=== PATIENT | female | born 1995 | race Caucasian/White ===

== ENCOUNTER → 2023-06-16 06:47 | Outpatient (CLI) | payer OTHER, SELFPAY ==
--- NOTE | 2023-06-16 06:49 | DI.US.S_ITS ---
PROCEDURE: US OB <= 14 WEEKS FETUS INDICATIONS: dating and viability OUTSIDE/PRIOR DATING DATA: Last menstrual period (LMP): 04/10/2023. LMP-based estimated date of delivery (JACQUELYN): 01/15/2024. First dating scan (date and location): 06/16/2023. Estimated date of delivery (JACQUELYN) from first dating scan: 01/12/2024. TECHNIQUE: Real-time scanning was performed of the fetus and maternal pelvic organs, with image documentation. Transvaginal exam not performed. COMPARISON: None. FINDINGS: Embryo: [place]-rump length measuring 3.1 cm, gestational age 10 weeks 0 days Heart rate: 153 bpm. A yolk sac is seen. Small perigestational hemorrhage measuring 3.1 cm. Maternal organs: Ovaries are within normal limits. Right corpus luteum measuring 3.3 cm. Small posterior uterine fibroid measuring 3.6 x 3.3 x 2.6 cm. IMPRESSION: 1. [place] living intrauterine at 10 weeks 0 days based on today's crown rump length. 2. Small perigestational hemorrhage. We strive to produce accurate, complete, and clear reports of imaging services. To assist us in improving patient care, this report was composed using standard report templates and voice recognition software. Therefore, it may contain abnormal punctuation, insertions and/or omissions. Occasional wrong-word or sound-alike substitutions may occur. Though we review the report and make efforts to correct it, we do recommend that the report be read carefully in proper context to recognize any text inaccuracies Dictated by: Eric Bales M.D. on 06/16/2023 at 11:36 Approved by: Eric Bales M.D. on 06/16/2023 at 11:41
== END ==
PROVIDERS: PCP Family Medicine; Referring Provider Family Medicine; Visit Provider Family Medicine
DX: O46.8X1 Other antepartum hemorrhage, first trimester (principal); Z3A.10 10 weeks gestation of pregnancy
CPT/HCPCS: 76801; 76817

== ENCOUNTER → 2023-07-05 07:18 | Outpatient (CLI) | payer OTHER, SELFPAY | PROVIDERS: PCP Family Medicine; Visit Provider Physician Assistant | DX: R30.0 Dysuria (principal); R10.9 Unspecified abdominal pain | CPT/HCPCS: 87086 ==

== ENCOUNTER 2023-07-05 07:36 | Emergency (ER) | payer OTHER, SELFPAY ==
[2023-07-05 07:54] VITALS: PULSE 75; O2SAT 99
[2023-07-05 08:00] VITALS: BP 136/85; PULSE 79; O2SAT 99
--- NOTE | 2023-07-05 08:01 | ED.BACK ---
HPI - Back Pain/Injury General Chief Complaint: Urogenital-Female Stated Complaint: kidney pain Time Seen by Provider: 07/05/23 07:55 History of Present Illness HPI Narrative: Patient is sent here from walk-in clinic for right flank pain for the past 5 days. No fever chills. No urinary complaints. No hematuria. Patient is . Twelve weeks . Has establish care locally with OBGYN. Explained to to date January 15, 2024. Patient states she is familiar with this flank pain. 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 She has had pyeloplasty as well as ureteral stents. She is from [place]. She moved here in March. Has not established urology care. Last procedure done was in 2018 in [place]. Patient denies any vaginal bleeding or discharge. She states she has not had any nausea or vomiting with her . Related Data Home Medications Medication Instructions Recorded Confirmed vitamin-ferrous sulfate tab PO 05/25/23 07/07/23 27 mg iron-folic acid 0.8 mg tablet Allergies Allergy/AdvReac Type Severity Reaction Status Date / Time oxycodone Allergy Severe Anaphylaxis Verified 07/07/23 11:40 Review of Systems Review of Systems Narrative: GENERAL: negative chills, fatigue, malaise, fever, sweats. 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 Arm fracture, right UPJ obstruction, congenital Surgical History [place] teeth extracted (~2020) History of pyeloplasty S/P skin biopsy Family History Mother Uterine cancer Grand multipara MTHFR gene mutation Sister Infertility History of recurrent miscarriages Sister History of recurrent miscarriages Pre-diabetes Congenital deafness Brother Mastocytosis Grandmother Diabetes mellitus Uncle Bone cancer Aunt Tonsillar cancer Social History marital status: number of children: 1 household members: spouse lives independently: Yes caregiver/support person: No housing: house pets and animals: Yes (2 cats, aware of toxo precautions) education level: college (bachelor's degree) occupational status: previously employed (worked in pet pharmacology) current occupational exposures/hazards: No special stephan needs: No travel history: recent (domestic only) seatbelt use: always helmet use: Yes water heater temp set < 120 deg: Yes working smoke detector in home: Yes fire extinguisher in home: Yes carbon monox detector in home: Yes firearms in home: No do you feel safe at home: Yes Smoking Status: Former smoker second hand exposure: No alcohol intake: former (occasionally when not ) substance use type: does not use during the past year weight has: remained stable well-balanced diet: daily or most days daily servings fruits/ve-4 caffeine: Yes (AM cup coffee) Type(s) of exercise: bicycling, weight lifting, other (skiing) and running frequency: daily Smoking Status: Former smoker Exam Narrative Exam Narrative: GENERAL: in no distress, not toxic not dyspneic HEAD: Normocephalic. EYES: Pupils equal round ENT: Mucous membranes moist. NECK: Trachea midline. CARDIOVASCULAR: Regular rate and rhythm RESPIRATORY: Clear to auscultation. Breath sounds equal bilaterally. No wheezes, rales, or rhonchi. GASTROINTESTINAL: Abdomen soft, non-tender, reproducible right lower CVA tenderness., abdomen is soft flat nontender. No peritoneal signs. Bowel sounds are present. EXTREMITIES: No gross deformities. BACK: Right CVA tenderness NEURO: AOx4. SKIN: Warm and dry PSYCH: Not anxious, is cooperative Initial Vital Signs Initial Vital Signs: Vital Signs Pulse Rate 75 07/05/23 07:54 Pulse Oximetry 99 07/05/23 07:54 Course Orders Ordered: Discontinued Medications Bacitracin (Bacitracin Oint 0.9 Gm Pckt) 1 applic TOP NOW ONE Stop: 07/05/23 08:36 Last Admin: 07/05/23 08:57 Dose: Not Given Documented By: JONATHAN Vital Signs Vital signs: Vital Signs - 8 hr 07/05/23 08:02 Temperature 98.4 F Pulse Rate 73 Respiratory Rate 18 Blood Pressure 130/72 Pulse Oximetry 100 Oxygen Delivery Method Room Air MDM - Back Pain/Injury Lab Data 07/05/23 08:04 07/05/23 08:04 Labs: Lab Results 07/05/23 07/05/23 Range/Units 07:54 08:04 WBC 7.2 (4.5-11.0) X10^3/uL RBC 4.03 (4.0-5.2) X10^6/uL Hgb 12.6 (12.0-16.0) g/dL Hct 36.4 (36-46) % MCV 90.2 (80-100) fL MCH 31.3 (26-34) PG MCHC 34.7 (30-36) % RDW 13.8 (11.6-14.8) % Plt Count 262 (150-400) X10^3/uL Neut % (Auto) 65.2 (50-75) % Lymph % (Auto) 26.3 (25-40) % [place] % (Auto) 6.6 (3-14) % Eos % (Auto) 1.5 L (2-4) % Baso % (Auto) 0.4 (0-2) % Neut # (Auto) 4700 (4138-9917) /uL Lymph # (Auto) 1900 (4317-2687) /uL [place] # (Auto) 500 (0-900) /uL Eos # (Auto) 100 (0-450) /uL Baso # (Auto) 0 (0-100) /uL Sodium 136 L (137-145) mmol/L Potassium 3.6 (3.4-5.1) mmol/L Chloride 108 H (98-107) mmol/L Carbon Dioxide 22 (22-32) mmol/L BUN 7 (7-17) mg/dL Creatinine 0.46 L (0.52-1.04) mg/dL Estimated GFR > 60 (>60) mL/min BUN/Creatinine Ratio 15.2 (6-22) Glucose 92 (70-100) mg/dL Calcium 8.9 (8.4-10.2) mg/dL Total Bilirubin 0.5 (0.2-1.3) mg/dL AST 23 (14-36) IU/L ALT 15 (<35) IU/L Alkaline Phosphatase 35 L (38-126) U/L Total Protein 6.7 (6.3-8.2) g/dL Albumin 4.1 (3.5-5.0) g/dL Globulin 2.6 (1.7-4.1) g/dL Albumin/Globulin Ratio 1.6 (1.0-2.8) Urine Color Yellow Urine Appearance Clear Urine pH 7.0 (4.5-8.0) Ur Specific [place] 1.015 (1.000-1.035) Urine Protein Negative (Negative) Urine Glucose (UA) Negative (Negative) g/dL Urine Ketones Negative (NEGATIVE) Urine Occult Blood Trace-intact (Negative) Urine Nitrate Negative (Negative) Urine Bilirubin Negative (NEGATIVE) Urine Urobilinogen 0.2 (0.2) E.U./dL Ur Leukocyte Esterase Negative (NEGATIVE) Urine RBC 1-5/hpf (0-5/HPF) Urine WBC None seen (0-5/HPF) Ur Squamous Epith Cells 1-5 /hpf (0-5/HPF) Urine Bacteria None seen (None) Ur Culture Indicated? Cult not indicated Vol Urine Centrifuged 10ml (spun) Point of Care Testing Test Results Positive Urine Dip Bedside Urine Glucose Negative Bedside Urine Bilirubin - Negative Bedside Urine Ketone - Negative Urine Specific [place] 1.015 Bedside Urine Occult Blood +/- Bedside Urine pH 6.5 Bedside Urine Protein - Negative Bedside Urine Urobilinogen - Negative Bedside Urine Nitrite - Negative Bedside Urine Leukocytes - Negative Esterase Imaging Data Renal ultrasound: Radiologist's Impression: [address] [address] Ultrasound Report Signed Patient: Neida Milton MR#: [id number] : 1995 Acct:[id number] Age/Sex: 28 / F Date of Service: 07/05/23 Loc: ED Accession Number: [id number] Procedure: US renal complete Ordering Provider: Daniel Anthony MD PROCEDURE: US RENAL COMPLETE INDICATIONS: Right flank pain/history of ureteral blockage TECHNIQUE: Real-time scanning was performed of the kidneys and bladder, with image documentation. COMPARISON: None. FINDINGS: Kidneys: Kidneys are normal in size. Right kidney measures 15.9 cm long; left kidney measures 11.8 cm long. Right renal cortical thickness is 1.9 cm; left renal cortical thickness is 1.8 cm. Renal cortical echotexture is normal. There is severe right hydronephrosis without hydroureter. No left hydronephrosis. No suspicious solid mass lesions. Bladder: Nondistended. Miscellaneous: No free pelvic fluid. Living late 1st trimester intrauterine with a heartbeat measuring 147 beats per minute. IMPRESSION: 1. There is a living late 1st trimester intrauterine . 2. There is severe right hydronephrosis without hydroureter. This may potentially be a chronic finding. Dictated by: Ezequiel Sofia M.D. on 07/05/2023 at 8:46 Approved by: Ezequiel Sofia M.D. on 07/05/2023 at 8:58 [facility] Narrative Medical decision making narrative: Patient is sent here from walk-in clinic for right flank pain for the past 5 days. No fever chills. No urinary complaints. No hematuria. Patient is . Twelve weeks . Has establish care locally with OBGYN. Explained to to date January 15, 2024. Patient states she is familiar with this flank pain. 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 She has had pyeloplasty as well as ureteral stents. She is from [place]. She moved here in March. Has not established urology care. Last procedure done was in 2019 in [place]. Patient denies any vaginal bleeding or discharge. She states she has not had any nausea or vomiting with her . After history and exam CBC CMP urinalysis renal ultrasound [facility] Medical records reviewed: No recent visit for this complaint. Differential considered: Includes but not limited to pyelonephritis hydronephrosis kidney stone UTI Lab Test results independently reviewed as above. Pertinent findings: Imaging studies independently reviewed: Ultrasound kidneys, severe right hydronephrosis likely chronic Consultations: 9:[address] Cooper, urology, who will see patient in the office for re-evaluation. No surgery or stenting indicated this time given normal renal function and ultrasound likely shows chronic hydronephrosis. No further imaging indicated this time as patient is . Treatments: None indicated. Patient does not want anything for discomfort. Re-evaluations: 9:22 a.m.. Reviewed results with patient. She states she had ultrasound of the kidney likely the last 1 was in 2019 in [place]. She has not surprised of the kidney swelling/hydronephrosis as this is likely chronic because when she was 9 years old they were able to palpate her kidney in the back. This is likely chronic. Renal functions are reassuring. She does not want anything for discomfort. I did talk to her and she agreed she may need higher level of care after meeting with Dr. Cooper and her OBGYN here, she may need to be referred to [facility] or [facility] or [facility] to coordinate OBGYN and urology services. Discussion: Appropriate for discharge home. Exam and laboratory studies are reassuring. Ultrasound kidney right side noted, severe hydronephrosis likely chronic due to patient's renal function is normal. I did review with patient results and she states her kidney on the right has always been swollen because when she was 9 years old and has swollen for all those years until she was diagnosed. Pain is controlled. She does not want any medications for pain. Return precautions reviewed. I did review with urology for follow up. Referral provided. Return precautions reviewed. She desires discharge home. No leukocytosis. No UTI. Likely not pyelonephritis. I did review with urology. No stenting indicated at this time. No antibiotics are indicated at this time. Diagnosis: Hydronephrosis Discharge Plan Departure Patient Disposition: Home Clinical Impression: Hydronephrosis Qualifiers: Hydronephrosis type: unspecified Qualified Code(s): N13.30 - Unspecified hydronephrosis Instructions: DI for Hydronephrosis-Adult Activity Restrictions/Additional Instructions: Please call Dr. Cooper office today for office appointment time for re-evaluation and continued care with Urology. Phone number has been provided. May take Tylenol for pain. Please inform your OBGYN provider that you will be seeing Dr. Cooper and need to coordinate care for any further future radiographs. Or procedures. At this time kidney function looks reassuring on blood work. However return if worse if any questions or concerns. Prescriptions: No Action vit-ferrous sulfat-FA 27 mg iron- 0.8 mg tablet PO Referrals: Estuardo Cooper MD [Physician] - Rosa Winslow MD [Primary Care Provider] - Stand Alone Forms: Patient Portal/API
[2023-07-05 08:02] VITALS: BP 130/72; PULSE 73; RESP 18; TEMP 36.9; O2SAT 100; BMI 23.3
[2023-07-05 08:06] LABS: Appearance Urine UA CLEAR; Bilirubin Urine UA NEGATIVE (NEGATIVE); Color Urine UA YELLOW; Glucose Urine UA NEGATIVE (Negative); Ketones Urine UA NEGATIVE (NEGATIVE); Leukocyte Esterase Urine UA NEGATIVE (NEGATIVE); Nitrite Urine UA NEGATIVE (Negative); Occult Blood Urine UA TRACE-INTACT (Negative); Protein Urine UA NEGATIVE (Negative); Specific Gravity Urine UA 1.015 (1.000-1.035); Urine Volume 10mL (spun); Urobilinogen Urine UA 0.2 E.U./dL (0.2)
[2023-07-05 08:11] LABS: RBC Urine 1-5/HPF (0-5/HPF)
[2023-07-05 08:11] LABS: Add Manual Diff / Slide Review NO; Basophils Absolute Auto 0 /uL (0-100); Basophils Percent Auto 0.4 % (0-2); Eosinophils Absolute Auto 100 /uL (0-450); Eosinophils Percent Auto 1.5 % (2-4); Hematocrit 36.4 % (36-46); Hemoglobin 12.6 g/dL (12.0-16.0); Lymphocytes Absolute Auto 1900 /uL (1100-4500); Lymphocytes Percent Auto 26.3 % (25-40); Mean Corpuscular HGB Conc 34.7 % (30-36); Mean Corpuscular Hemoglobin 31.3 PG (26-34); Mean Corpuscular Volume 90.2 fL (80-100); Monocytes Absolute Auto 500 /uL (0-900); Monocytes Percent Auto 6.6 % (3-14); Neutrophils Absolute Auto 4700 /uL (1500-7000); Neutrophils Percent Auto 65.2 % (50-75); Platelet Count 262 X10^3/uL (150-400); Red Blood Cell Count 4.03 X10^6/uL (4.0-5.2); Red Cell Distribution Width 13.8 % (11.6-14.8); White Blood Cell Count 7.2 X10^3/uL (4.5-11.0)
[2023-07-05 08:12] LABS: Bacteria Urine None Seen; Culture Indicated Urine Cult Not Indicated; Squamous Epithelial Cell Urine 1-5 /HPF (0-5/HPF); WBC Urine None Seen (0-5/HPF)
[2023-07-05 08:24] LABS: Alanine Aminotransferase 15 IU/L (<35); Albumin 4.1 g/dL (3.5-5.0); Albumin Globulin Ratio 1.6 (1.0-2.8); Alkaline Phosphatase 35 U/L (38-126); Aspartate Aminotransferase 23 IU/L (14-36); BUN Creatinine Ratio 15.2 (6-22); Bilirubin Total 0.5 mg/dL (0.2-1.3); Blood Urea Nitrogen 7 mg/dL (7-17); Calcium 8.9 mg/dL (8.4-10.2); Carbon Dioxide 22 mmol/L (22-32); Chloride 108 mmol/L (98-107); Estimated Glomerular Filt Rate > 60 mL/min (>60); Globulin 2.6 g/dL (1.7-4.1); Glucose 92 mg/dL (70-100); HEMOLYSIS < 15 (0-50); Potassium 3.6 mmol/L (3.4-5.1); Sodium 136 mmol/L (137-145); Total Protein 6.7 g/dL (6.3-8.2)
[2023-07-05 08:30] VITALS: BP 111/67; PULSE 68; O2SAT 99
[2023-07-05 09:00] VITALS: BP 105/69; PULSE 67; O2SAT 97
[2023-07-05 09:30] VITALS: BP 110/76; PULSE 72; O2SAT 98
== END 2023-07-05 09:42 | disposition home or self-care (01) ==
PROVIDERS: Emergency Provider Emergency Medicine; PCP Family Medicine
DX: O99.891 Other specified diseases and conditions complicating pregnancy (principal); N13.30 Unspecified hydronephrosis; R30.0 Dysuria; R10.9 Unspecified abdominal pain; Z3A.12 12 weeks gestation of pregnancy
CPT/HCPCS: 76770; 80053; 81001; 81003; 81025; 85025; 87086; 99282; 99283

== ENCOUNTER → 2023-07-22 09:08 | Outpatient (CLI) | payer OTHER, SELFPAY ==
[2023-07-22 10:08] LABS: Appearance Urine UA CLEAR; Bilirubin Urine UA NEGATIVE (NEGATIVE); Color Urine UA YELLOW; Glucose Urine UA NEGATIVE (Negative); Ketones Urine UA NEGATIVE (NEGATIVE); Leukocyte Esterase Urine UA NEGATIVE (NEGATIVE); Nitrite Urine UA NEGATIVE (Negative); Occult Blood Urine UA NEGATIVE (Negative); Protein Urine UA NEGATIVE (Negative); Specific Gravity Urine UA 1.015 (1.000-1.035); Urobilinogen Urine UA 0.2 E.U./dL (0.2)
[2023-07-22 10:09] LABS: Add Manual Diff / Slide Review NO; Basophils Absolute Auto 0 /uL (0-100); Basophils Percent Auto 0.3 % (0-2); Eosinophils Absolute Auto 100 /uL (0-450); Eosinophils Percent Auto 0.8 % (2-4); Hemoglobin 12.9 g/dL (12.0-16.0); Lymphocytes Absolute Auto 1600 /uL (1100-4500); Lymphocytes Percent Auto 20.5 % (25-40); Mean Corpuscular Hemoglobin 31.7 PG (26-34); Mean Corpuscular Volume 90.6 fL (80-100); Monocytes Absolute Auto 400 /uL (0-900); Monocytes Percent Auto 4.5 % (3-14); Neutrophils Absolute Auto 5800 /uL (1500-7000); Neutrophils Percent Auto 73.9 % (50-75); Platelet Count 280 X10^3/uL (150-400); Red Blood Cell Count 4.08 X10^6/uL (4.0-5.2); Red Cell Distribution Width 13.9 % (11.6-14.8); White Blood Cell Count 7.8 X10^3/uL (4.5-11.0)
[2023-07-22 10:12] LABS: pH Urine UA 6.5 (4.5-8.0)
[2023-07-22 10:44] LABS: Alanine Aminotransferase 22 IU/L (<35); Albumin Globulin Ratio 1.8 (1.0-2.8); Alkaline Phosphatase 37 U/L (38-126); Aspartate Aminotransferase 24 IU/L (14-36); Bilirubin Total 0.5 mg/dL (0.2-1.3); Blood Urea Nitrogen 6 mg/dL (7-17); Calcium 8.7 mg/dL (8.4-10.2); Carbon Dioxide 22 mmol/L (22-32); Chloride 107 mmol/L (98-107); Estimated Glomerular Filt Rate > 60 mL/min (>60); Globulin 2.2 g/dL (1.7-4.1); Glucose 88 mg/dL (70-100); HEMOLYSIS < 15 (0-50); Potassium 3.8 mmol/L (3.4-5.1); Sodium 137 mmol/L (137-145); Total Protein 6.2 g/dL (6.3-8.2)
[2023-07-22 10:44] LABS: Creatinine Urine Random 103.07 mg/dL; Protein (Total) Urine Random 16 mg/dL (0-12); Protein Creatinine Ratio Urine 0.15 GRAM/24H
[2023-07-22 11:14] LABS: Hepatitis B Surface Antigen NEGATIVE s/c (NEGATIVE); Rubella Antibody IgG 1.8 IU/mL (>15)
[2023-07-22 11:39] LABS: HIV 1 & 2 Ab/Ag 4th Gen Combo NEGATIVE (NEGATIVE); Hep C Virus Ab w/Reflex Quant NEGATIVE s/c (NEGATIVE)
[2023-07-22 12:16] LABS: Urine N gonorrhoeae NOT DETECTED
[2023-07-22 12:17] LABS: Urine Chlamydia NOT DETECTED
[2023-07-23 06:35] LABS: RPR Screen Non Reactive (Non Reactive)
[2023-07-23 08:10] LABS: Varicella IgG Antibody 246 index (Immune >165)
== END ==
PROVIDERS: PCP Family Medicine; Referring Provider Family Medicine; Visit Provider Family Medicine
DX: Z34.01 Encounter for supervision of normal first pregnancy, first trimester (principal); Q63.9 Congenital malformation of kidney, unspecified
CPT/HCPCS: 36415; 80053; 80055; 81003; 82570; 84156; 86787; 86803; 86850; 86900; 86901; 87086; 87389; 87491; 87591

== ENCOUNTER → 2023-08-17 09:43 | Outpatient (CLI) | payer OTHER, SELFPAY | PROVIDERS: PCP Family Medicine; Visit Provider Family Medicine | DX: Z34.00 Encounter for supervision of normal first pregnancy, unspecified trimester (principal); Q63.9 Congenital malformation of kidney, unspecified; Q52.129 Other and unspecified longitudinal vaginal septum | CPT/HCPCS: 87086 ==

== ENCOUNTER → 2023-09-07 11:39 | Outpatient (CLI) | payer OTHER, SELFPAY ==
[2023-09-07 12:49] LABS: Appearance Urine UA CLEAR; Bilirubin Urine UA NEGATIVE (NEGATIVE); Color Urine UA YELLOW; Glucose Urine UA NEGATIVE (Negative); Ketones Urine UA NEGATIVE (NEGATIVE); Leukocyte Esterase Urine UA TRACE (NEGATIVE); Nitrite Urine UA POSITIVE (Negative); Occult Blood Urine UA NEGATIVE (Negative); Protein Urine UA NEGATIVE (Negative); Urobilinogen Urine UA 0.2 E.U./dL (0.2)
[2023-09-07 13:01] LABS: Bacteria Urine Moderate (10-30); Culture Indicated Urine Specimen Cultured; RBC Urine None Seen (0-5/HPF); Squamous Epithelial Cell Urine 5-10 /HPF (0-5/HPF); Urine Volume 10mL (spun); WBC Urine 5-10/HPF (0-5/HPF)
== END ==
PROVIDERS: PCP Family Medicine; Visit Provider Family Medicine
DX: Z34.00 Encounter for supervision of normal first pregnancy, unspecified trimester (principal); Q63.9 Congenital malformation of kidney, unspecified
CPT/HCPCS: 81001; 87086

== ENCOUNTER → 2023-09-09 06:44 | Outpatient (CLI) | payer OTHER, SELFPAY ==
--- NOTE | 2023-09-09 06:45 | DI.US.S_ITS ---
PROCEDURE: US OB >= 14 WEEKS FETUS INDICATIONS: anatomy scan OUTSIDE/PRIOR DATING DATA: Last menstrual period (LMP): 04/10/2023. LMP-based estimated date of delivery (JACQUELYN): 01/15/2024. First dating scan (date and location): 06/16/2023. Estimated date of delivery (JACQUELYN) from first dating scan: 01/12/2024. The calculations are made using the clinical JACQUELYN of 01/15/2024. TECHNIQUE: Real-time scanning was performed of the fetus, with image documentation and biometric measurements. Endovaginal scanning: Not performed. COMPARISON: [facility], , OB <= 14 WEEKS FETUS, 06/16/2023, 6:57. FINDINGS: General: A single living intrauterine gestation is present. Presentation: Vertex. Placenta: Placental position is posterior, without previa. Amniotic fluid index: 15.4 cm, normal range is 5-24 cm. Single deepest vertical pocket is 4.1 cm. heart rate: Not obtained. Subjectively normal. Maternal cervical canal: 3.1 cm long. Normal lower limit is 2.5 cm. biometrics: Biparietal diameter: 5.4 cm, 22 weeks 3 days Head circumference: 20.4 cm, 22 weeks 3 days Abdominal circumference: 17.7 cm, 22 weeks 4 days Femur length: 4 cm, 22 weeks 5 days Clinically estimated gestational age: 21 weeks 5 days Composite gestational age from present scan: 22 weeks 4 days Estimated weight and percentile: 523 g, 88th percentile Anatomic survey: Neuro: Ventricles are non-dilated at less than 10 mm. Cisterna magna is normal at 3-11 mm. Cerebellum is normal in size and morphology. Nuchal skin fold: Normal at less than 6 mm between 14-21 weeks gestational age. Face: Nose and lips, facial profile are normal. Spine: No evidence for spina bifida. Heart: 4-chambered heart is present, with normal ventricular outflow tracts. Diaphragm: Diaphragm is intact. Stomach: Left-sided stomach is present. Kidneys: No hydronephrosis. Normal is less than 5 mm in 2nd trimester, less than 7 mm in 3rd trimester. Cord: 3-vessel cord has orthotopic insertion. Bladder: Normal in size. Extremities: All 4 extremities identified. IMPRESSION: 1. Tobar living intrauterine at 22 weeks 4 days based on today's ultrasound. Fetus is in the 88th percentile for weight. 2. Normal placenta and amniotic fluid. 3. Normal and complete anatomic survey. heart rate was not obtained. However, subjectively normal. We strive to produce accurate, complete, and clear reports of imaging services. To assist us in improving patient care, this report was composed using standard report templates and voice recognition software. Therefore, it may contain abnormal punctuation, insertions and/or omissions. Occasional wrong-word or sound-alike substitutions may occur. Though we review the report and make efforts to correct it, we do recommend that the report be read carefully in proper context to recognize any text inaccuracies. Dictated by: Eric Bales M.D. on 09/09/2023 at 14:39 Approved by: Eric Bales M.D. on 09/09/2023 at 14:46
== END ==
LOC: US 06:44
PROVIDERS: PCP Family Medicine; Referring Provider Family Medicine; Visit Provider Family Medicine
DX: Z34.82 Encounter for supervision of other normal pregnancy, second trimester (principal); Z3A.22 22 weeks gestation of pregnancy
CPT/HCPCS: 76811

== ENCOUNTER 2023-09-20 20:48 | Observation (INO) | payer OTHER, SELFPAY ==
--- NOTE | 2023-09-20 21:59 | PM.OBTRLD ---
Visit Information Visit Information Date of evaluation: 09/20/23 On-call OB Provider: Sydney Smith Comments/Additional reasons for admission: 28yo at 23+2wks presented to triage after a fall on her side while carrying a heavy piece of a computer out of her house. The computer piece fell on her upper abdomen. She denied feeling any abdominal pain or vaginal bleeding. Vital Signs Vital Signs: BP 105/56, P 69 PFSH Medical History (Updated 09/20/23 @ 22:04 by Sydney Smith DO) Hydronephrosis, right Mullerian duct anomaly Pneumonitis due to aspiration during anesthesia Arm fracture, right UPJ obstruction, congenital Surgical History History of ureter stent Hx of laparoscopy [place] teeth extracted (~2020) History of pyeloplasty S/P skin biopsy Family History Mother Uterine cancer Grand multipara MTHFR gene mutation Sister Infertility History of recurrent miscarriages Hearing impairment Sister History of recurrent miscarriages Pre-diabetes Congenital deafness Brother Mastocytosis Eczema Hearing impairment Grandmother Diabetes mellitus Uncle Bone cancer Aunt Tonsillar cancer Social History marital status: number of children: 1 household members: spouse lives independently: Yes caregiver/support person: No housing: house pets and animals: Yes (2 cats, aware of toxo precautions) education level: college occupational status: previously employed current occupational exposures/hazards: No special stephan needs: No travel history: recent seatbelt use: always helmet use: Yes water heater temp set < 120 deg: Yes working smoke detector in home: Yes fire extinguisher in home: Yes carbon monox detector in home: Yes firearms in home: No do you feel safe at home: Yes Smoking Status: Former smoker second hand exposure: No alcohol intake: current substance use type: does not use during the past year weight has: remained stable well-balanced diet: daily or most days daily servings fruits/ve-4 caffeine: Yes (AM cup coffee) Type(s) of exercise: bicycling, weight lifting, other and running frequency: daily Evaluation Evaluation Baseline heart rate: 135 Variability: Moderate (11-25) monitor accelerations: Present (10x10) Monitor Decelerations: Absent Category of Tracing: Appropriate for gestational age Diagnosis, Plan/Disposition Final Diagnosis (1) Fall (on) (from) other stairs and steps, initial encounter: Status: Acute Plan/Disposition Plan: Pt was observed in the center for 4hrs with no changes in symptoms and no concerns on monitoring. Discharged home with precautions. Follow-up in clinic as scheduled. OB Disposition: home
== END 2023-09-21 01:05 | disposition home or self-care (01) ==
LOC: LABOR 20:52
PROVIDERS: Admitting Provider Student in an Organized Health Care Education/Training Program; PCP Family Medicine; Referring Provider Student in an Organized Health Care Education/Training Program; Visit Provider Student in an Organized Health Care Education/Training Program
DX: O26.892 Other specified pregnancy related conditions, second trimester (principal); W10.9XXA Fall (on) (from) unspecified stairs and steps, initial encounter; Z3A.23 23 weeks gestation of pregnancy
CPT/HCPCS: 59050; G0378; G0379

== ENCOUNTER → 2023-10-05 10:11 | Outpatient (CLI) | payer OTHER, SELFPAY ==
[2023-10-05 12:26] LABS: Appearance Urine UA SL CLOUDY; Bilirubin Urine UA NEGATIVE (NEGATIVE); Color Urine UA YELLOW; Glucose Urine UA NEGATIVE (Negative); Ketones Urine UA NEGATIVE (NEGATIVE); Leukocyte Esterase Urine UA 2+ (NEGATIVE); Nitrite Urine UA POSITIVE (Negative); Occult Blood Urine UA NEGATIVE (Negative); Protein Urine UA TRACE (Negative); Specific Gravity Urine UA 1.015 (1.000-1.035); Urobilinogen Urine UA 0.2 E.U./dL (0.2)
[2023-10-05 12:30] LABS: pH Urine UA 6.5 (4.5-8.0)
[2023-10-05 12:39] LABS: RBC Urine None Seen (0-5/HPF); Urine Volume 10mL (spun)
[2023-10-05 12:40] LABS: Bacteria Urine Many (>30); Culture Indicated Urine Specimen Cultured; Squamous Epithelial Cell Urine 1-5 /HPF (0-5/HPF); WBC Urine 10-30/HPF (0-5/HPF)
== END ==
PROVIDERS: PCP Family Medicine; Visit Provider Family Medicine
DX: Q63.9 Congenital malformation of kidney, unspecified (principal)
CPT/HCPCS: 81001; 87086

== ENCOUNTER → 2023-10-12 09:30 | Outpatient (CLI) | payer OTHER, SELFPAY ==
[2023-10-12 11:13] LABS: GTT (PREG) 1 Hour PP 50gm Dose 122 mg/dL (76-139)
== END ==
PROVIDERS: PCP Family Medicine; Referring Provider Family Medicine; Visit Provider Family Medicine
DX: Z34.00 Encounter for supervision of normal first pregnancy, unspecified trimester (principal)
CPT/HCPCS: 36415; 82950

== ENCOUNTER → 2023-10-24 14:57 | Outpatient (CLI) | payer OTHER, SELFPAY ==
[2023-10-24 17:17] LABS: Appearance Urine UA CLEAR; Bilirubin Urine UA NEGATIVE (NEGATIVE); Color Urine UA YELLOW; Glucose Urine UA NEGATIVE (Negative); Ketones Urine UA NEGATIVE (NEGATIVE); Leukocyte Esterase Urine UA 3+ (NEGATIVE); Nitrite Urine UA POSITIVE (Negative); Occult Blood Urine UA NEGATIVE (Negative); Protein Urine UA NEGATIVE (Negative); Urobilinogen Urine UA 0.2 E.U./dL (0.2)
[2023-10-24 17:24] LABS: Bacteria Urine Few (2-10); Culture Indicated Urine Specimen Cultured; RBC Urine None Seen (0-5/HPF); Squamous Epithelial Cell Urine 1-5 /HPF (0-5/HPF); Urine Volume 10mL (spun); WBC Urine 5-10/HPF (0-5/HPF)
== END ==
PROVIDERS: PCP Family Medicine; Visit Provider Family Medicine
DX: R39.9 Unspecified symptoms and signs involving the genitourinary system (principal)
CPT/HCPCS: 81001; 87086

== ENCOUNTER 2023-10-28 20:58 | Outpatient (CLI) | payer OTHER, SELFPAY ==
--- NOTE | 2023-10-28 21:24 | PC.NURSE ---
Per Dr. Machuca, OB RN to obtain heart tones via doppler and patiertn to be seen in ER for flank pain. FHR found to be 130-135 via doppler over a 5 minute time span. Patient sent to register in ER with urine sample collected in Labor and Delivery
== END 2023-10-28 21:30 | disposition home or self-care (01) ==
LOC: OB 11-01 07:29
PROVIDERS: PCP Family Medicine; Referring Provider Family Medicine; Visit Provider Family Medicine
DX: O26.893 Other specified pregnancy related conditions, third trimester (principal); R10.9 Unspecified abdominal pain; Z3A.28 28 weeks gestation of pregnancy
CPT/HCPCS: G0378; G0379

== ENCOUNTER 2023-10-28 21:31 | Emergency (ER) | payer OTHER, SELFPAY ==
[2023-10-28 21:46] VITALS: BP 111/72; PULSE 75; RESP 18; TEMP 36.3; O2SAT 98; BMI 26.6
[2023-10-28 22:07] LABS: Urine Volume 10mL (spun)
--- NOTE | 2023-10-28 22:07 | DI.US.S_ITS ---
PROCEDURE: US RENAL COMPLETE INDICATIONS: 29 weeks EGA with history of hydro and right flank pain TECHNIQUE: Real-time scanning was performed of the kidneys and bladder, with image documentation. COMPARISON: [facility], US, US RENAL COMPLETE, 07/05/2023, 8:15. [facility], US, US OB >= 14 WEEKS FETUS, 10/28/2023, 23:23. FINDINGS: Kidneys: Kidneys are normal in size. Right kidney measures 15.8 cm long; left kidney measures 12.3 cm long. Right renal cortical thickness is 0.6 cm; left renal cortical thickness is 1.6 cm. Renal cortical echotexture is normal. No suspicious solid mass lesions. There is severe right-sided hydronephrosis. Right-sided kidney stones are seen, measuring 11 mm and 18 mm. Bladder: Pre-void bladder volume is 277 mL. Post-void residual is 9 mL. Pre-void images demonstrate no intraluminal masses or stones. On pre-void images, neither of the ureteral jets are noted with color Doppler interrogation. (Of note, ureteral jets may not be detectable in up to 25% of cases due to insufficient differences in specific gravity between ureteral and bladder urine). Miscellaneous: No free pelvic fluid. IMPRESSION: There is severe right-sided hydronephrosis, which is worse than on the prior examination. Nonobstructing right-sided kidney stones are seen. Dictated by: Tevin Jaramillo M.D. on 10/28/2023 at 23:25 Approved by: Tevin Jaramillo M.D. on 10/28/2023 at 23:27
[2023-10-28 22:08] LABS: Bacteria Urine Many (>30); Culture Indicated Urine Specimen Cultured; RBC Urine None Seen (0-5/HPF); Squamous Epithelial Cell Urine 5-10 /HPF (0-5/HPF); WBC Urine 5-10/HPF (0-5/HPF)
--- NOTE | 2023-10-28 22:08 | DI.US.S_ITS ---
PROCEDURE: US OB >= 14 WEEKS FETUS INDICATIONS: Twenty-nine weeks EGA with the abdominal pain OUTSIDE/PRIOR DATING DATA: Last menstrual period (LMP): 04/10/2023 LMP-based estimated date of delivery (JACQUELYN): 01/15/2024. First dating scan (date and location): 06/16/2023. Estimated date of delivery (JACQUELYN) from first dating scan: 01/12/2024. TECHNIQUE: Real-time scanning was performed of the fetus, with image documentation. COMPARISON: [facility], RENAL COMPLETE, 10/28/2023, 23:11. [facility], US OB >= 14 WEEKS FETUS, 09/09/2023, 6:52. FINDINGS: General: A single live intrauterine gestation is present. Presentation: Breech. Placenta: Placental position is posterior, without previa. Amniotic fluid index: 16.4 cm, normal range is 5-24 cm. Single deepest vertical pocket is 6.5 cm. heart rate: 141 beats per minute. Maternal cervical canal: 3.9 cm long. Normal lower limit is 2.5 cm. IMPRESSION: No significant abnormality of the can be seen. We strive to produce accurate, complete, and clear reports of imaging services. To assist us in improving patient care, this report was composed using standard report templates and voice recognition software. Therefore, it may contain abnormal punctuation, insertions and/or omissions. Occasional wrong-word or sound-alike substitutions may occur. Though we review the report and make efforts to correct it, we do recommend that the report be read carefully in proper context to recognize any text inaccuracies. Dictated by: Tevin Jaramillo M.D. on 10/28/2023 at 23:27 Approved by: Tevin Jaramillo M.D. on 10/28/2023 at 23:29
[2023-10-29 00:37] LABS: Add Manual Diff / Slide Review NO; Basophils Absolute Auto 0 /uL (0-100); Basophils Percent Auto 0.4 % (0-2); Eosinophils Absolute Auto 100 /uL (0-450); Eosinophils Percent Auto 1.2 % (2-4); Hematocrit 33.1 % (36-46); Hemoglobin 11.5 g/dL (12.0-16.0); Lymphocytes Absolute Auto 2000 /uL (1100-4500); Lymphocytes Percent Auto 18.2 % (25-40); Mean Corpuscular HGB Conc 34.7 % (30-36); Mean Corpuscular Hemoglobin 31.3 PG (26-34); Mean Corpuscular Volume 90.2 fL (80-100); Monocytes Absolute Auto 800 /uL (0-900); Monocytes Percent Auto 6.7 % (3-14); Neutrophils Absolute Auto 8200 /uL (1500-7000); Neutrophils Percent Auto 73.5 % (50-75); Platelet Count 254 X10^3/uL (150-400); Red Blood Cell Count 3.67 X10^6/uL (4.0-5.2); White Blood Cell Count 11.2 X10^3/uL (4.5-11.0)
[2023-10-29 00:43] LABS: Alanine Aminotransferase 15 IU/L (<35); Albumin 3.4 g/dL (3.5-5.0); Albumin Globulin Ratio 1.3 (1.0-2.8); Alkaline Phosphatase 58 U/L (38-126); Aspartate Aminotransferase 21 IU/L (14-36); BUN Creatinine Ratio 9.3 (6-22); Bilirubin Total 0.3 mg/dL (0.2-1.3); Blood Urea Nitrogen 4 mg/dL (7-17); Calcium 8.4 mg/dL (8.4-10.2); Carbon Dioxide 20 mmol/L (22-32); Chloride 108 mmol/L (98-107); Estimated Glomerular Filt Rate > 60 mL/min (>60); Globulin 2.7 g/dL (1.7-4.1); Glucose 110 mg/dL (70-100); HEMOLYSIS < 15 (0-50); Lipase 69 U/L (23-300); Potassium 3.5 mmol/L (3.4-5.1); Sodium 132 mmol/L (137-145); Total Protein 6.1 g/dL (6.3-8.2)
--- NOTE | 2023-10-29 01:10 | ED_ITS ---
HPI - General Adult General Chief complaint: Urogenital-Female Stated complaint: 29wk Preg, R Flank Pain Time Seen by Provider: 10/28/23 22:07 Source: patient Mode of arrival: Ambulatory History of Present Illness HPI narrative: Patient is a 28-year-old female. She was a at approximately 29 weeks EGA. She reports this has been fairly uncomplicated up to this point. She was followed by OB and also Urology. She has a history of right-sided hydronephrosis. States this has been present for many years. 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 She stated that she has had urinary tract infections in the past and also kidney infections but her last 1 was years ago. She has been followed by Urology during this and was told that nothing specific needs to be done unless the patient had multiple urinary tract infections. She reports some right-sided flank pain. No vaginal bleeding. No vaginal discharge. No loss of fluid. She was still feeling her baby move. No chest pain. No shortness of breath. No nausea or vomiting. No change in bowel habits. No cough. She states that this morning she started to have right-sided flank pain. She has had pain like this in the past but not as severe. She was told in the past that pain like this could be either a kidney stone or potentially an infection. She was tolerating oral intake. Overall she feels well. Pain is somewhat worse with palpation. No skin changes. Related Data Home Medications Medication Instructions Recorded Confirmed vitamin-ferrous sulfate tab PO 05/25/23 10/24/23 27 mg iron-folic acid 0.8 mg tablet Previous Rx's Medication Instructions Recorded cephalexin 500 mg capsule 500 mg PO TID 10 days #30 caps 10/29/23 Allergies Allergy/AdvReac Type Severity Reaction Status Date / Time oxycodone Allergy Severe Anaphylaxis Verified 10/24/23 14:03 Review of Systems Review of Systems ROS Unobtainable: All systems reviewed & are unremarkable except as noted in HPI and below Patient History Medical History Hydronephrosis, right Mullerian duct anomaly Pneumonitis due to aspiration during anesthesia Arm fracture, right UPJ obstruction, congenital Surgical History History of ureter stent Hx of laparoscopy [place] teeth extracted (~2020) History of pyeloplasty S/P skin biopsy Family History Mother Uterine cancer Grand multipara MTHFR gene mutation Sister Infertility History of recurrent miscarriages Hearing impairment Sister History of recurrent miscarriages Pre-diabetes Congenital deafness Brother Mastocytosis Eczema Hearing impairment Grandmother Diabetes mellitus Uncle Bone cancer Aunt Tonsillar cancer Social History marital status: number of children: 1 household members: spouse lives independently: Yes caregiver/support person: No housing: house pets and animals: Yes (2 cats, aware of toxo precautions) education level: college occupational status: previously employed current occupational exposures/hazards: No special stephan needs: No travel history: recent seatbelt use: always helmet use: Yes water heater temp set < 120 deg: Yes working smoke detector in home: Yes fire extinguisher in home: Yes carbon monox detector in home: Yes firearms in home: No do you feel safe at home: Yes Smoking Status: Former smoker second hand exposure: No alcohol intake: current substance use type: does not use during the past year weight has: remained stable well-balanced diet: daily or most days daily servings fruits/ve-4 caffeine: Yes (AM cup coffee) Type(s) of exercise: bicycling, weight lifting, other and running frequency: daily Smoking Status: Former smoker alcohol intake frequency: 0-2 drinks per day Substance Use Type: does not use Exam Initial Vital Signs Initial Vital Signs: Vital Signs Temperature 97.3 F L 10/28/23 21:46 Pulse Rate 75 10/28/23 21:46 Respiratory Rate 18 10/28/23 21:46 Blood Pressure 111/72 10/28/23 21:46 Pulse Oximetry 98 10/28/23 21:46 Oxygen Delivery Method Room Air 10/28/23 21:46 Const General: cooperative, comfortable and No ill appearing HENMT Head: normal to inspection and normocephalic Resp Effort & Inspection: normal respiratory effort Cardio Rate: regular rate GI Other: Gravid abdomen, nontender Back/Spine/Pelvis Back: CVA tenderness right Skin General: no rashes or lesions noted Neuro General: patient alert, patient awake and moves all extremities Extrem General: normal to inspection and capillary refill normal Course Orders Ordered: ED Orders 10/28/23 21:25 Urine Microscopic Stat 10/28/23 22:07 US renal complete Stat 10/28/23 22:08 US OB >= 14 weeks Fetus Stat Complete Blood Count AUTO DIFF Stat Lipase Stat 10/29/23 00:03 Chlamydia Gonorrhea PCR -URINE Stat Urine Culture Stat 10/29/23 00:05 Comprehensive Metabolic Panel Stat Discontinued Medications Cephalexin HCl (Cephalexin 250 Mg Capsule) 500 mg PO NOW ONE Stop: 10/29/23 01:12 Last Admin: 10/29/23 01:24 Dose: 500 mg Documented By: EL Vital Signs Vital signs: Vital Signs - 8 hr 10/28/23 21:46 10/29/23 01:40 Temperature 97.3 F L Pulse Rate 75 68 Respiratory Rate 18 18 Blood Pressure 111/72 104/57 L Pulse Oximetry 98 97 Oxygen Delivery Method Room Air Room Air Medical Decision Making Medical Records Medical records reviewed: Yes I reviewed the patient's medical records. Lab Data Lab results reviewed: Yes I reviewed the patient's lab results. 10/29/23 00:25 10/29/23 00:25 Labs: Lab Results 10/28/23 10/29/23 Range/Units 21:25 00:25 WBC 11.2 H (4.5-11.0) X10^3/uL RBC 3.67 L (4.0-5.2) X10^6/uL Hgb 11.5 L (12.0-16.0) g/dL Hct 33.1 L (36-46) % MCV 90.2 (80-100) fL MCH 31.3 (26-34) PG MCHC 34.7 (30-36) % RDW 14.0 (11.6-14.8) % Plt Count 254 (150-400) X10^3/uL Neut % (Auto) 73.5 (50-75) % Lymph % (Auto) 18.2 L (25-40) % [place] % (Auto) 6.7 (3-14) % Eos % (Auto) 1.2 L (2-4) % Baso % (Auto) 0.4 (0-2) % Neut # (Auto) 8200 H (1152-2696) /uL Lymph # (Auto) 2000 (5353-4126) /uL [place] # (Auto) 800 (0-900) /uL Eos # (Auto) 100 (0-450) /uL Baso # (Auto) 0 (0-100) /uL Sodium 132 L (137-145) mmol/L Potassium 3.5 (3.4-5.1) mmol/L Chloride 108 H (98-107) mmol/L Carbon Dioxide 20 L (22-32) mmol/L BUN 4 L (7-17) mg/dL Creatinine 0.43 L (0.52-1.04) mg/dL Estimated GFR > 60 (>60) mL/min BUN/Creatinine Ratio 9.3 (6-22) Glucose 110 H (70-100) mg/dL Calcium 8.4 (8.4-10.2) mg/dL Total Bilirubin 0.3 (0.2-1.3) mg/dL AST 21 (14-36) IU/L ALT 15 (<35) IU/L Alkaline Phosphatase 58 (38-126) U/L Total Protein 6.1 L (6.3-8.2) g/dL Albumin 3.4 L (3.5-5.0) g/dL Globulin 2.7 (1.7-4.1) g/dL Albumin/Globulin Ratio 1.3 (1.0-2.8) Lipase 69 (23-300) U/L Urine RBC None seen (0-5/HPF) Urine WBC 5-10/hpf H (0-5/HPF) Ur Squamous Epith Cells 5-10 /hpf H (0-5/HPF) Urine Bacteria Many (>30) H (None) Ur Culture Indicated? Specimen cultured Vol Urine Centrifuged 10ml (spun) Urine Dip Bedside Urine Glucose Negative Bedside Urine Bilirubin - Negative Bedside Urine Ketone - Negative Urine Specific [place] 1.010 Bedside Urine Occult Blood - Negative Bedside Urine pH 7.0 Bedside Urine Protein - Negative Bedside Urine Urobilinogen - Negative Bedside Urine Nitrite + Positive Bedside Urine Leukocytes ++ 125 Esterase Point of care testing: Urine Dip Bedside Urine Glucose Negative Bedside Urine Bilirubin - Negative Bedside Urine Ketone - Negative Urine Specific [place] 1.010 Bedside Urine Occult Blood - Negative Bedside Urine pH 7.0 Bedside Urine Protein - Negative Bedside Urine Urobilinogen - Negative Bedside Urine Nitrite + Positive Bedside Urine Leukocytes ++ 125 Esterase Imaging Data Renal ultrasound: Radiologist's Impression: PROCEDURE: US RENAL COMPLETE INDICATIONS: 29 weeks EGA with history of hydro and right flank pain TECHNIQUE: Real-time scanning was performed of the kidneys and bladder, with image documentation. COMPARISON: [facility], RENAL COMPLETE, 07/05/2023, 8:15. [facility], US OB >= 14 WEEKS FETUS, 10/28/2023, 23:23. FINDINGS: Kidneys: Kidneys are normal in size. Right kidney measures 15.8 cm long; left kidney measures 12.3 cm long. Right renal cortical thickness is 0.6 cm; left renal cortical thickness is 1.6 cm. Renal cortical echotexture is normal. No suspicious solid mass lesions. There is severe right-sided hydronephrosis. Right-sided kidney stones are seen, measuring 11 mm and 18 mm. Bladder: Pre-void bladder volume is 277 mL. Post-void residual is 9 mL. Pre- void images demonstrate no intraluminal masses or stones. On pre-void images, neither of the ureteral jets are noted with color Doppler interrogation. (Of note, ureteral jets may not be detectable in up to 25% of cases due to insufficient differences in specific gravity between ureteral and bladder urine). Miscellaneous: No free pelvic fluid. IMPRESSION: There is severe right-sided hydronephrosis, which is worse than on the prior examination. Nonobstructing right-sided kidney stones are seen. US - OB: Radiologist's Impression: PROCEDURE: US OB >= 14 WEEKS FETUS INDICATIONS: Twenty-nine weeks EGA with the abdominal pain OUTSIDE/PRIOR DATING DATA: Last menstrual period (LMP): 04/10/2023 LMP-based estimated date of delivery (JACQUELYN): 01/15/2024. First dating scan (date and location): 06/16/2023. Estimated date of delivery (JACQUELYN) from first dating scan: 01/12/2024. TECHNIQUE: Real-time scanning was performed of the fetus, with image documentation. COMPARISON: [facility], US RENAL COMPLETE, 10/28/2023, 23:11. [facility], US OB >= 14 WEEKS FETUS, 09/09/2023, 6:52. FINDINGS: General: A single live intrauterine gestation is present. Presentation: Breech. Placenta: Placental position is posterior, without previa. Amniotic fluid index: 16.4 cm, normal range is 5-24 cm. Single deepest vertical pocket is 6.5 cm. heart rate: 141 beats per minute. Maternal cervical canal: 3.9 cm long. Normal lower limit is 2.5 cm. IMPRESSION: No significant abnormality of the can be seen. MDM Narrative Medical decision making narrative: Patient has no specific OB related complaints. She was feeling her baby move. No vaginal bleeding. No cramping. No loss of fluid. Ob ultrasound today shows live intrauterine without specific abnormalities. She was having right-sided flank pain. Ultrasound today does show that she has hydronephrosis that is somewhat worse than prior studies. Her creatinine is unremarkable. She does have a nitrite positive urine. She has no urinary symptoms to include frequency/urgency/hesitancy. She was feeling like she was emptying her bladder. She was not having any incontinence. She does have right-sided flank pain that is reproducible with palpation. I feel that kidney stone is unlikely. No abdominal pain. Low suspicion that this is referred pain from gallbladder. He was no skin changes concerning for zoster. We did discuss her nitrite positive urine and how this could be indicative of bacteria in the urine. Given the fact that she was and that she has had multiple urinary tract infections in the past and even kidney infections in the past I do feel that treating her with antibiotics as warranted. A urine culture was pending at the time of her discharge. She was given a dose of antibiotics here in the emergency department and she tolerated them without vomiting. Given that she was having right-sided flank pain there was some concern about pyelonephritis . She was afebrile. Appears well. Tolerating oral intake. Has a white blood cell count of 11.2 with normal being 11. We discussed that potentially females with pyelonephritis would get admitted to the hospital but given her clinical presentation today in the fact that she was tolerating oral intake and that she does not have a fever and generally feels well I do feel that a trial of outpatient antibiotics by mouth would be reasonable. The patient expressed agreement with this. She was instructed that if she has any further issues to include fevers or worsening pain or inability to take the antibiotics that she needs to return to the emergency department. She has a follow-up with her OB provider already scheduled for the middle of next week and she was advised to keep this appointment. Patient expressed understanding agreement with plan. Discharge Plan Departure Patient Disposition: Home Clinical Impression: Pyelonephritis, Hydronephrosis, Instructions: DI for Kidney Infection Activity Restrictions/Additional Instructions: A prescription for antibiotics was sent to [facility] per your request. Please start taking it as directed. I recommend that you keep your scheduled follow-up appointment with your medicare contact specialist next week. Return to the emergency department for new symptoms to include fevers, worsening pain, inability to take the antibiotics or any other new symptoms. Prescriptions: New cephalexin 500 mg capsule 500 mg PO TID 10 Days Qty: 30 0RF No Action vit-ferrous sulfat-FA 27 mg iron- 0.8 mg tablet PO Referrals: Rosa Winslow MD [Primary Care Provider] - Stand Alone Forms: Patient Portal/API
[2023-10-29] MEDS: cephALEXin 250 MG CAPSULE 500 MG PO (01:24)
[2023-10-29 01:40] VITALS: BP 104/57; PULSE 68; RESP 18; O2SAT 97
== END 2023-10-29 01:45 | disposition home or self-care (01) ==
PROVIDERS: Emergency Provider Emergency Medicine; PCP Family Medicine
DX: O23.03 Infections of kidney in pregnancy, third trimester (principal); O99.891 Other specified diseases and conditions complicating pregnancy; N13.30 Unspecified hydronephrosis; Z3A.29 29 weeks gestation of pregnancy
CPT/HCPCS: 36415; 76770; 76811; 80053; 81003; 81015; 83690; 85025; 87086; 99284

== ENCOUNTER → 2023-11-02 10:04 | Outpatient (CLI) | payer OTHER, SELFPAY | PROVIDERS: PCP Family Medicine; Visit Provider Family Medicine | DX: Z34.00 Encounter for supervision of normal first pregnancy, unspecified trimester (principal) | CPT/HCPCS: 87210 ==

== ENCOUNTER 2024-01-09 12:03 | Inpatient (IN) | payer OTHER, SELFPAY ==
[2024-01-09] MEDS: LACTATED RINGERS 1,000 ML 42 ML IV (13:11)
[2024-01-09] MEDS: ACETAMINOPHEN 325 MG TABLET 975 MG PO (13:21)
[2024-01-09] MEDS: CITRIC ACID/SODIUM CITRATE 15 ML SOLUTION 30 ML PO (13:22)
[2024-01-09] MEDS: FAMOTIDINE 20 MG/2 ML VIAL IV (13:22)
[2024-01-09 13:31] VITALS: BP 111/76
--- NOTE | 2024-01-09 13:40 | SUR.OPER ---
Supine on padded OR bed, head on pillow, arms secured on padded arm boards at <90 degrees abduction, legs uncrossed, safety belt at thigh, tape over blanket over lower legs.
--- NOTE | 2024-01-09 13:46 | PM.OBHP.1 ---
OB HPI Date/Time Date of admission: 01/09/24 Date Patient Seen: 01/09/24 Time Patient Seen: 13:47 History of Present Condition Chief complaint: INPT : 1 Estimated Date of Delivery: 01/15/24 Estimated Gestational Age (weeks): 39w1d Narrative: Neida Cheney is a 28 year old G1 presenting for primary LTCS [id number]. 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 She was seen by MFM early in to assist with delivery planning due to septic vagina. They recommended primary at 39 weeks. Aside from this, has been uncomplicated. At this time she has feeling no contractions. Overall feeling well. No concerns today Indications Operative indications ( section): longitudinal septate vagina History of Present care: good care Dating criteria: LMP confirmed by 1st trimester US Ultrasounds: normal mid trimester US Obstetrical complications: none Medical complications: none Preadmission Labs Blood type: A (+) positive -: Antibody screen: negative, GBS status: unknown, HBsAG: negative, HIV: negative and RPR/VDLR: negative -: Chlamydia screen: not detected and Gonorrhea screen: not detected -: Rubella: not immune and Varicella: immune HCT: 13.5 HCAB: negative 1 hr GTT: 122 Evaluation Evaluation Baseline heart rate: 120 Variability: Moderate (11-25) monitor accelerations: Present Monitor Decelerations: Absent Contraction Frequency (minutes): 0 Category of Tracing: Reactive Status: Category l PFSH Medical History Hydronephrosis, right Mullerian duct anomaly Pneumonitis due to aspiration during anesthesia Arm fracture, right UPJ obstruction, congenital Surgical History History of ureter stent Hx of laparoscopy [place] teeth extracted (~2020) History of pyeloplasty S/P skin biopsy Family History Mother Uterine cancer Grand multipara MTHFR gene mutation Sister Infertility History of recurrent miscarriages Hearing impairment Sister History of recurrent miscarriages Pre-diabetes Congenital deafness Brother Mastocytosis Eczema Hearing impairment Grandmother Diabetes mellitus Uncle Bone cancer Aunt Tonsillar cancer Social History marital status: number of children: 1 household members: spouse lives independently: Yes caregiver/support person: No housing: house pets and animals: Yes (2 cats, aware of toxo precautions) education level: college occupational status: previously employed current occupational exposures/hazards: No special stephan needs: No travel history: recent seatbelt use: always helmet use: Yes water heater temp set < 120 deg: Yes working smoke detector in home: Yes fire extinguisher in home: Yes carbon monox detector in home: Yes firearms in home: No do you feel safe at home: Yes Smoking Status: Never smoker second hand exposure: No alcohol intake: current substance use type: does not use during the past year weight has: remained stable well-balanced diet: daily or most days daily servings fruits/ve-4 caffeine: Yes (AM cup coffee) Type(s) of exercise: bicycling, weight lifting, other and running frequency: daily Meds Home Medications and Allergies Home Medications Medication Instructions Recorded Confirmed Type vitamin-ferrous sulfate tab PO 05/25/23 01/04/24 History 27 mg iron-folic acid 0.8 mg tablet Allergies Allergy/AdvReac Type Severity Reaction Status Date / Time oxycodone Allergy Severe Anaphylaxis Verified 01/04/24 09:23 Review of Systems Review of Systems Narrative: - contractions + movement OB Exam Vital signs Blood Pressure: 111/76 Pulse Rate: 82 Narrative Exam Narrative: Gen: well appearing, NAD CV: warm and well perfused Pulm: breathing comfortably on RA ABd: gravid, non-tender Objective Labs 01/09/24 13:00 Assessment and Plan Assessment and Plan Assessment and Plan narrative: 28 year old G1 presenting for primary LTCS [id number]. 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 #SIUP at 39w1d # Mullanrian Anomaly: - primary LTCS by [facility] reccomendation due to septate cervix and vagina - CBC, TS - Ancef for surgical ppx - Spinal plan per anesthesia, pt does have oxycodone allergy - Cat 1 strip Time-Based Coding :: [TOTAL MINUTES] spent with patient and on the chart (including review of chart, obtaining history, exam, reviewing outside data, placing orders, documenting exam and treatment plan, and counseling patient) on [DATE].
[2024-01-09 13:48] LABS: Add Manual Diff / Slide Review NO; Basophils Absolute Auto 0 /uL (0-100); Basophils Percent Auto 0.3 % (0-2); Eosinophils Absolute Auto 0 /uL (0-450); Eosinophils Percent Auto 0.4 % (2-4); Hematocrit 39.5 % (36-46); Hemoglobin 13.5 g/dL (12.0-16.0); Lymphocytes Absolute Auto 2000 /uL (1100-4500); Lymphocytes Percent Auto 18.1 % (25-40); Mean Corpuscular HGB Conc 34.2 % (30-36); Mean Corpuscular Hemoglobin 31.6 PG (26-34); Mean Corpuscular Volume 92.4 fL (80-100); Monocytes Absolute Auto 600 /uL (0-900); Monocytes Percent Auto 5.1 % (3-14); Neutrophils Absolute Auto 8400 /uL (1500-7000); Neutrophils Percent Auto 76.1 % (50-75); Platelet Count 240 X10^3/uL (150-400); Red Blood Cell Count 4.27 X10^6/uL (4.0-5.2)
[2024-01-09 14:13] VITALS: BP 111/76; PULSE 82
[2024-01-09] MEDS: CEFAZOLIN 2 GM/100 ML PREMIX 100 ML IV (14:49)
--- NOTE | 2024-01-09 15:44 | PM.OBCS.1 ---
Operative Date/Time/Diagnoses Date of procedure: 01/09/24 Time of procedure: 03:30 Pre-op diagnosis: Longitudinal vaginal and cervical septum Post-op diagnosis: same Procedure & Clinicians Procedure: Low transverse primary Same procedure as scheduled: Yes Indications: Longitudinal vaginal and cervical septum Surgeon: Rosa Winslow Click Yes if Unassisted: No Courtroom Clerk: Diana Jay Reason for Courtroom Clerk: Courtroom Clerk required for the safe, effective, and timely completion of this surgery. The office services assistant was necessary to retract upon entry into the abdomen and uterus. Assisted with delivery of the with fundal pressure. Assisted with closure with retraction, holding suture, and closure of the contralateral fascia. Anesthesia Type: Spinal Operative Notes Findings: Normal uterus, ovaries, and tubes. Closure Type: primary Specimen(s): cord blood Intraoperative meds administered: Duramorph and Pitocin Applied: Catheter Estimated Blood Loss (mL): 600 Blood products transfused: none Procedure in detail: OPERATIVE COURSE: The patient was taken to the operating room where spinal anesthesia was placed. Ancef was given for surgical ppx. She was then prepared and draped in the normal sterile fashion in the dorsal supine position with a leftward tilt. Anesthesia was tested and found to be adequate. A Pfannensteil skin incision was then made with the scalpel and carried through to the underlying layer of fascia with the scalpel. The fascia was incised in the midline and the incision extended laterally bluntly. The underlying rectus muscles dissected off bluntly. The rectus muscles were then in the midline, and the peritoneum was identified and entered bluntly. The peritoneal incision was then extended with good visualization of the bladder. Retraction was provided by the certified surgical tech/first assistant. The bladder blade was then inserted and the vesicouterine peritoneum identified well below the line of uterine incision so no bladder flap was created The lower uterine segment was incised in a transverse fashion with the scalpel, with the certified surgical tech/first assistant providing suction. The uterine incision was then extended superolaterally by pulling superolaterally on both sides. Membranes were ruptured and fluid was clear. The bladder blade was removed the infant's head was flexed out of direct OP position and delivered atraumatically, with fundal pressure by the certified surgical tech/first assistant. The nose and mouth were suctioned with bulb suction and the cord was clamped and cut. The nose and mouth were suctioned with bulb suction and the cord was clamped and cut after a 60 second delay. The infant was handed off to the waiting nursing staff. Cord blood was collected. Time of delivery was 14:57. APGARS were 8 and 9 at one and five minutes respectively. There was a short period of CPAP after 5 minutes of life due to O2 sats in the 70s but this resolved quickly and was moved bakc to room air. The placenta was then delivered with gentle cord traction. The uterus was then exteriorized and cleared of all clots and debris. The uterine incision was repaired with 0 Vicryl in a single running, locked fashion. The uterus was returned to the abdomen. The gutters were cleared of all clots. Hysterotomy was investigated and found to be hemostatic. The fascia was reapproximated with 0 Vicryl in a running fashion. The subcutaneous tissue was reapproximated with 3-0 vicryl. The skin was closed with 4-0 monocryl. The certified surgical tech/first assistant helped with retraction during closures. SPONGE AND NEEDLE COUNTS: Correct x3. DRESSING: Aquacel ANTICOAGULATION: SCDs applied prior to Surgery Preop antibiotics given (see MAR). The patient was taken to recovery room having tolerated procedure well. Complications: none Post-operative Condition: stable Disposition: PACU Aftercare: routine postop
[2024-01-09 15:45] VITALS: BP 141/78; PULSE 56; RESP 14; TEMP 36.4; O2SAT 99
[2024-01-09 15:50] VITALS: BP 137/63; PULSE 55; RESP 11; O2SAT 99
[2024-01-09 15:55] VITALS: BP 151/63; PULSE 54; RESP 13; O2SAT 99
[2024-01-09 16:01] VITALS: BP 148/85; PULSE 53; RESP 12; TEMP 36.2; O2SAT 99
[2024-01-09] MEDS: LACTATED RINGERS 1,000 ML 100 ML IV (16:51)
[2024-01-09] MEDS: METOCLOPRAMIDE 10 MG/2 ML INJ IV (18:42)
[2024-01-10] MEDS: KETOROLAC 30 MG/ML VIAL 15 MG IV ×3 (01:44→15:17)
[2024-01-10] MEDS: ACETAMINOPHEN 325 MG TABLET 650 MG PO ×3 (03:58→17:05)
[2024-01-10 06:44] LABS: Add Manual Diff / Slide Review NO; Basophils Absolute Auto 0 /uL (0-100); Basophils Percent Auto 0.2 % (0-2); Eosinophils Absolute Auto 0 /uL (0-450); Hematocrit 30.3 % (36-46); Hemoglobin 10.5 g/dL (12.0-16.0); Lymphocytes Absolute Auto 2100 /uL (1100-4500); Lymphocytes Percent Auto 11.6 % (25-40); Mean Corpuscular HGB Conc 34.6 % (30-36); Mean Corpuscular Hemoglobin 31.9 PG (26-34); Mean Corpuscular Volume 92.2 fL (80-100); Monocytes Absolute Auto 1300 /uL (0-900); Monocytes Percent Auto 7.3 % (3-14); Neutrophils Absolute Auto 14500 /uL (1500-7000); Neutrophils Percent Auto 80.9 % (50-75); Platelet Count 218 X10^3/uL (150-400); Red Blood Cell Count 3.29 X10^6/uL (4.0-5.2); Red Cell Distribution Width 14.2 % (11.6-14.8); White Blood Cell Count 17.9 X10^3/uL (4.5-11.0)
--- NOTE | 2024-01-10 07:42 | PM.PN.NB.1 ---
Subjective Subjective Date Patient Seen: 01/10/24 Time Patient Seen: 07:42 Interval history: Doing well, feeding Exam - Pediatric Vital Signs Vital Signs: Vital Signs BP 111/76 01/09/24 13:31 Additional Exam Additional findings: GEN: NAD HEENT: Red Reflex not seen, external ears w/o tags or pits, No cephalohematoma, hard palate intact NECK: clavical intact bilaterally CV: RRR, no murmurs/rubs/gallops RESP: CTAB, no distress ABD: nl BS, soft, non-distended, no masses, no guarding, clean and dry umbilical stump RECTAL: Patent, no masses, no pits or hair tucks at gluteal cleft : Normal female genitalia for PULSES: 2+ femoral pulses b/l EXTR: No swelling or edema in the BLE, Negative Ortoloni and Benedict b/l SKIN: No rashes or lesions throughout body, no spinal yunior of hair or dimples, No Jaundice NEURO: moving all extremities equally, good tone, +Arie, +Etl Application Developer in all four extremities, Good suck reflex, rooting present Objective Labs 01/10/24 06:28 Labs: Laboratory Results - last 24 hr 01/09/24 01/10/24 13:00 06:28 WBC 11.0 17.9 H D RBC 4.27 3.29 L Hgb 13.5 10.5 L Hct 39.5 30.3 L MCV 92.4 92.2 MCH 31.6 31.9 MCHC 34.2 34.6 RDW 14.0 14.2 Plt Count 240 218 Neut % (Auto) 76.1 H 80.9 H Lymph % (Auto) 18.1 L 11.6 L [place] % (Auto) 5.1 7.3 Eos % (Auto) 0.4 L 0.0 L Baso % (Auto) 0.3 0.2 Neut # (Auto) 8400 H 07605 H Lymph # (Auto) 2000 2100 [place] # (Auto) 600 1300 H Eos # (Auto) 0 0 Baso # (Auto) 0 0 Blood Type A Positive Antibody Screen Negative Assessment & Plan Time-Based Coding :: [TOTAL MINUTES] spent with patient and on the chart (including review of chart, obtaining history, exam, reviewing outside data, placing orders, documenting exam and treatment plan, and counseling patient) on [DATE].
--- NOTE | 2024-01-10 07:43 | P.PNOB_ITS ---
Subjective - OB Subjective Patient comments: no complaints and pain well controlled baby status: doing well and nursing well feeding status: exclusively breast feeding Narrative: Pain well controlled this Am, some pain when standing but mostly controlled. Making some breast milk Date Patient Seen: 01/10/24 Time Patient Seen: 07:44 Interval history: POD 1, feeling well, pain 1-2/10, hurts a little more when she stands and moves around but is overall doing well. Breast feeding is going well. Bleeding is less than a period, not soaking a pad frequently Exam Vital Signs (past 8 hours): Oxygen Delivery Method Room Air Oxygen Flow Rate 0 Narrative Exam Narrative: Gen: NAD, tired but not ill CV: warm and well perfused, RRR, no murmurs Pul: breathing comfortably on RA ABd: non-tender Objective Labs 01/10/24 06:28 01/10/24 06:28 Labs: Laboratory Results - last 24 hr 01/09/24 01/10/24 13:00 06:28 WBC 11.0 17.9 H D RBC 4.27 3.29 L Hgb 13.5 10.5 L Hct 39.5 30.3 L MCV 92.4 92.2 MCH 31.6 31.9 MCHC 34.2 34.6 RDW 14.0 14.2 Plt Count 240 218 Neut % (Auto) 76.1 H 80.9 H Lymph % (Auto) 18.1 L 11.6 L [place] % (Auto) 5.1 7.3 Eos % (Auto) 0.4 L 0.0 L Baso % (Auto) 0.3 0.2 Neut # (Auto) 8400 H 68417 H Lymph # (Auto) 2000 2100 [place] # (Auto) 600 1300 H Eos # (Auto) 0 0 Baso # (Auto) 0 0 Blood Type A Positive Antibody Screen Negative Assessment & Plan Plan day: 1 Comments: 28 year old G1 who is POD1 following primary LTCS. 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 CS was uncomplicated. Doing well post-op # s/p LTCS # POD 1: post op pain well controlled without narcotics. Toadol PRN instead of scheduled due to underlying kidney dz - check CBC and CMP today for Hgb and to assess renal function - plan for would check in 1 week - PRN dilaudid for pain - scheduled tylenol for pain
[2024-01-10 08:38] LABS: Alanine Aminotransferase 17 IU/L (<35); Albumin 2.9 g/dL (3.5-5.0); Albumin Globulin Ratio 1.3 (1.0-2.8); Alkaline Phosphatase 105 U/L (38-126); Aspartate Aminotransferase 53 IU/L (14-36); BUN Creatinine Ratio 18.6 (6-22); Bilirubin Total 0.5 mg/dL (0.2-1.3); Blood Urea Nitrogen 11 mg/dL (7-17); Calcium 8.7 mg/dL (8.4-10.2); Carbon Dioxide 21 mmol/L (22-32); Chloride 108 mmol/L (98-107); Estimated Glomerular Filt Rate > 60 mL/min (>60); Globulin 2.3 g/dL (1.7-4.1); Glucose 92 mg/dL (70-100); HEMOLYSIS < 15 (0-50); Sodium 132 mmol/L (137-145); Total Protein 5.2 g/dL (6.3-8.2)
[2024-01-10] MEDS: PRENATAL VIT,CALC/IRON/FOLIC 1 TABLET 1 TAB PO (12:02)
[2024-01-10 17:10] VITALS: BP 117/76; PULSE 60; RESP 14; TEMP 36.6
--- NOTE | 2024-01-10 17:10 | P.DS_ITS ---
History of Present Illness History of Present Illness Date Patient Seen: 01/10/24 Time Patient Seen: 07:40 Chief complaint: INPT Narrative: POD 1, feeling well, pain 1-2/10, hurts a little more when she stands and moves around but is overall doing well. Breast feeding is going well. Bleeding is less than a period, not soaking a pad frequently Discharge Providers Provider Date of admission: 01/09/24 12:03 Discharge Date: 01/10/24 Primary care physician: Rosa Winslow MD Consults: 01/09/24 15:51 Consult to Oracle Application Architect Routine Comment: Discharge provider: Rosa Winslow MD Summary Hospital Course Hospital Course: Neida Cheney is a 28 year old G1 presenting for primary LTCS [id number]. 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 She was seen by MFM early in to assist with delivery planning due to septic vagina. They recommended primary at 39 weeks. Aside from this, was been uncomplicated. Primary LTCS was completed without difficulty, see procedure note for details. Post-operatively pain was well controlled. She met with and breast feeding was going well. Bleeding was well controlled. Status at Discharge Cognitive/behavioral status at discharge: oriented Exam Vital Signs (past 8 hours): Oxygen Delivery Method Room Air Oxygen Flow Rate 0 Narrative Exam Narrative: Gen: NAD, tired but not ill CV: warm and well perfused, RRR, no murmurs Pul: breathing comfortably on RA ABd: non-tender Objective Labs 01/10/24 06:28 01/10/24 06:28 Labs: Laboratory Results - last 24 hr 01/10/24 06:28 WBC 17.9 H D RBC 3.29 L Hgb 10.5 L Hct 30.3 L MCV 92.2 MCH 31.9 MCHC 34.6 RDW 14.2 Plt Count 218 Neut % (Auto) 80.9 H Lymph % (Auto) 11.6 L [place] % (Auto) 7.3 Eos % (Auto) 0.0 L Baso % (Auto) 0.2 Neut # (Auto) 52242 H Lymph # (Auto) 2100 [place] # (Auto) 1300 H Eos # (Auto) 0 Baso # (Auto) 0 Sodium 132 L Potassium 4.0 Chloride 108 H Carbon Dioxide 21 L BUN 11 Creatinine 0.59 Estimated GFR > 60 BUN/Creatinine Ratio 18.6 Glucose 92 Calcium 8.7 Total Bilirubin 0.5 AST 53 H ALT 17 Alkaline Phosphatase 105 Total Protein 5.2 L Albumin 2.9 L Globulin 2.3 Albumin/Globulin Ratio 1.3 PFSH Medical History Hydronephrosis, right Mullerian duct anomaly Pneumonitis due to aspiration during anesthesia Arm fracture, right UPJ obstruction, congenital Surgical History History of ureter stent Hx of laparoscopy [place] teeth extracted (~2020) History of pyeloplasty S/P skin biopsy Family History Mother Uterine cancer Grand multipara MTHFR gene mutation Sister Infertility History of recurrent miscarriages Hearing impairment Sister History of recurrent miscarriages Pre-diabetes Congenital deafness Brother Mastocytosis Eczema Hearing impairment Grandmother Diabetes mellitus Uncle Bone cancer Aunt Tonsillar cancer Social History marital status: number of children: 1 household members: spouse lives independently: Yes caregiver/support person: No housing: house pets and animals: Yes (2 cats, aware of toxo precautions) education level: college occupational status: previously employed current occupational exposures/hazards: No special stephan needs: No travel history: recent seatbelt use: always helmet use: Yes water heater temp set < 120 deg: Yes working smoke detector in home: Yes fire extinguisher in home: Yes carbon monox detector in home: Yes firearms in home: No do you feel safe at home: Yes Smoking Status: Never smoker second hand exposure: No alcohol intake: current substance use type: does not use during the past year weight has: remained stable well-balanced diet: daily or most days daily servings fruits/ve-4 caffeine: Yes (AM cup coffee) Type(s) of exercise: bicycling, weight lifting, other and running frequency: daily Discharge Plan Discharge Plan Patient Disposition: Home Discharge orders & Medications Prescriptions: New hydromorphone [Dilaudid] 2 mg tablet 2 mg PO Q6H Qty: 7 0RF Continued vit-ferrous sulfat-FA 27 mg iron- 0.8 mg tablet PO Follow up/Referrals: Rosa Winslow MD [Primary Care Provider] - (Incision check on 01/16/2024 @ 1330pm 6 week follow up appt on 03/05/2024 @ 0930am with Dr. Lee) Visit Report/Discharge Packet Stand Alone Forms: Discharge: Care, Patient Portal/API, Stroke Signs & Symptoms Discharge Data Primary Care Provider: Rosa Winslow
== END 2024-01-10 19:20 | disposition home or self-care (01) | DRG 788 ==
PROVIDERS: Admitting Provider Family Medicine; PCP Family Medicine; Referring Provider Family Medicine; Visit Provider Family Medicine
PROC: 10D00Z1 Extraction of Products of Conception, Low, Open Approach (ICD-10-PCS; CPT 59514; principal; 2024-01-09 14:15)
DX: O34.63 Maternal care for abnormality of vagina, third trimester (principal); Q52.129 Other and unspecified longitudinal vaginal septum; Z37.0 Single live birth; Z3A.39 39 weeks gestation of pregnancy
CPT/HCPCS: 36415; 59050; 80053; 85025; 86850; 86900; 86901; J0690; J1100; J1885; J2274; J2405; J2765; J3010

== ENCOUNTER → 2024-08-24 15:44 | Outpatient (CLI) | payer OTHER, SELFPAY | PROVIDERS: PCP Family Medicine; Visit Provider Family Medicine | DX: N23 Unspecified renal colic (principal); R30.9 Painful micturition, unspecified; R30.0 Dysuria | CPT/HCPCS: 87086 ==

== ENCOUNTER → 2024-08-24 16:03 | Outpatient (CLI) | payer OTHER, SELFPAY ==
--- NOTE | 2024-08-24 16:07 | DI.US.S_ITS ---
PROCEDURE: US RENAL COMPLETE INDICATIONS: HEMATURIA AND FLANK PAIN TECHNIQUE: Real-time scanning was performed of the kidneys and bladder, with image documentation. COMPARISON: [facility], , RENAL COMPLETE, 10/28/2023, 23:11. FINDINGS: Kidneys: Right kidney is enlarged. Right kidney measures 15.8 cm long; left kidney measures 10.6 cm long. Right renal cortical thickness is 0.8 cm; left renal cortical thickness is 1.5 cm. Renal cortical echotexture is normal. Mild to moderate right hydronephrosis. No nephrolithiasis. No suspicious solid mass lesions. Increased vascularity bilaterally, greater on the right. Bladder: Pre-void bladder volume is 31 mL. Pre-void images demonstrate no intraluminal masses or stones. On pre-void images, neither ureteral jets are noted with color Doppler interrogation. (Of note, ureteral jets may not be detectable in up to 25% of cases due to insufficient differences in specific gravity between ureteral and bladder urine). Miscellaneous: No free pelvic fluid. IMPRESSION: [id number] right hydronephrosis. Chronic enlargement of the right kidney with cortical thinning. Increased vascularity within the bilateral kidneys, greater on the right. Findings may be secondary to pyelonephritis. Dictated by: Matthew Zapata M.D. on 08/24/2024 at 16:46 Approved by: Matthew Zapata M.D. on 08/24/2024 at 16:49
[2024-08-24 17:12] LABS: Add Manual Diff / Slide Review NO; Basophils Absolute Auto 0 /uL (0-100); Basophils Percent Auto 0.6 % (0-2); Eosinophils Absolute Auto 100 /uL (0-450); Eosinophils Percent Auto 1.7 % (2-4); Hematocrit 40.8 % (36-46); Hemoglobin 13.9 g/dL (12.0-16.0); Lymphocytes Absolute Auto 2400 /uL (1100-4500); Mean Corpuscular Hemoglobin 30.5 PG (26-34); Mean Corpuscular Volume 89.8 fL (80-100); Monocytes Absolute Auto 400 /uL (0-900); Monocytes Percent Auto 5.2 % (3-14); Neutrophils Absolute Auto 4600 /uL (1500-7000); Neutrophils Percent Auto 60.5 % (50-75); Platelet Count 305 X10^3/uL (150-400); Red Blood Cell Count 4.55 X10^6/uL (4.0-5.2); Red Cell Distribution Width 13.1 % (11.6-14.8); White Blood Cell Count 7.6 X10^3/uL (4.5-11.0)
[2024-08-24 17:40] LABS: Alanine Aminotransferase 18 IU/L (<35); Albumin 4.7 g/dL (3.5-5.0); Albumin Globulin Ratio 1.9 (1.0-2.8); Alkaline Phosphatase 53 U/L (38-126); Aspartate Aminotransferase 27 IU/L (14-36); BUN Creatinine Ratio 20.3 (6-22); Bilirubin Total 0.6 mg/dL (0.2-1.3); Blood Urea Nitrogen 12 mg/dL (7-17); Calcium 9.8 mg/dL (8.4-10.2); Carbon Dioxide 27 mmol/L (22-32); Chloride 103 mmol/L (98-107); Estimated Glomerular Filt Rate > 60 mL/min (>60); Globulin 2.5 g/dL (1.7-4.1); Glucose 101 mg/dL (70-99); HEMOLYSIS < 15 (0-50); Potassium 4.1 mmol/L (3.4-5.1); Sodium 138 mmol/L (137-145); Total Protein 7.2 g/dL (6.3-8.2)
== END ==
PROVIDERS: PCP Family Medicine; Referring Provider Family Medicine; Visit Provider Family Medicine
DX: N13.30 Unspecified hydronephrosis (principal); R31.9 Hematuria, unspecified; N28.81 Hypertrophy of kidney; N23 Unspecified renal colic; Q62.39 Other obstructive defects of renal pelvis and ureter; Q63.9 Congenital malformation of kidney, unspecified; R30.9 Painful micturition, unspecified; R30.0 Dysuria
CPT/HCPCS: 36415; 76770; 80053; 85025; 87040; 87086

== ENCOUNTER 2024-12-29 12:01 | Emergency (ER) | payer OTHER, SELFPAY ==
[2024-12-29 12:04] VITALS: BP 140/76; PULSE 71; RESP 18; TEMP 37.1; O2SAT 100; BMI 26.6
--- NOTE | 2024-12-29 12:13 | DI.US.S_ITS ---
PROCEDURE: US OB <= 14 WEEKS FETUS INDICATIONS: SPOTTING, CRAMPING Last menstrual period (LMP): 11/10/2024. LMP-based estimated date of delivery (JACQUELYN): 08/17/2024. TECHNIQUE: Real-time scanning was performed of the fetus and maternal pelvic organs, with image documentation. Endovaginal scanning was also performed to better visualize the fetus and maternal ovaries. COMPARISON: [facility], , OB <= 14 WEEKS FETUS, 06/16/2023, 6:57. FINDINGS: Embryo: [place]-rump length 0.6 cm corresponds with a 6 week 2 day gestation Heart rate: 98 beats per minute Maternal organs: Left-sided uterine fibroid, 2.5 x 2.2 cm. IMPRESSION: Single live intrauterine consistent with 6 week 2 day gestation Approved by: Kevin Ortiz M.D. on 12/29/2024 at 13:11
[2024-12-29 12:43] LABS: Add Manual Diff / Slide Review NO; Hematocrit 41.1 % (36-46); Hemoglobin 14.0 g/dL (12.0-16.0); Lymphocytes Absolute Auto 1800 /uL (1100-4500); Mean Corpuscular HGB Conc 34.1 % (30-36); Mean Corpuscular Hemoglobin 30.2 PG (26-34); Mean Corpuscular Volume 88.4 fL (80-100); Platelet Count 292 X10^3/uL (150-400)
[2024-12-29 12:48] LABS: Alanine Aminotransferase 19 IU/L (<35); Albumin 4.9 g/dL (3.5-5.0); Albumin Globulin Ratio 1.7 (1.0-2.8); Alkaline Phosphatase 47 U/L (38-126); Blood Urea Nitrogen 9 mg/dL (7-17); Calcium 9.3 mg/dL (8.4-10.2); Carbon Dioxide 23 mmol/L (22-32); Chloride 105 mmol/L (98-107); Estimated Glomerular Filt Rate > 60 mL/min (>60); Globulin 2.9 g/dL (1.7-4.1); Glucose 117 mg/dL (70-99); HEMOLYSIS < 15 (0-50); Potassium 3.6 mmol/L (3.4-5.1); Sodium 139 mmol/L (137-145); Total Protein 7.8 g/dL (6.3-8.2)
[2024-12-29 13:05] LABS: HCG Quantitative /Beta subunit 2836.7 mIU/mL
[2024-12-29 13:08] LABS: Culture Indicated Urine Specimen Cultured
--- NOTE | 2024-12-29 13:18 | ED.PREGNANCY ---
HPI - General Chief complaint: Vaginal Bleeding Stated complaint: Early /Bleeding and spotting Time Seen by Provider: 12/29/24 12:13 Source: patient Mode of arrival: Ambulatory Limitations: no limitations History of Present Illness HPI Narrative: Patient is a 29-year-old female to P1 presenting today with abdominal cramping and bleeding. She reports that she was not trying to have another baby her last 1 is only a year old but found out she was at home about last week. She has a appointment with Ob in January she has a scheduled ultrasound in 2 weeks. However this morning at 5:00 a.m. she started having some cramping and some bleeding. She does not report heavy bleeding she is not needing a menstrual pad it is just when she wipes. However it started off dark and brown in his now changing to bright red. She had no complications or problems with her last . No dizziness or lightheadedness. Related Data Home Medications ?Medication ?Instructions ?Recorded ?Confirmed vitamin-ferrous sulfate tab PO 05/25/23 12/24/24 27 mg iron-folic acid 0.8 mg tablet Allergies Allergy/AdvReac Type Severity Reaction Status Date / Time oxycodone Allergy Severe Anaphylaxis Verified 12/29/24 12:07 Exam Initial Vital Signs Initial Vital Signs: Vital Signs Temperature 98.8 F 12/29/24 12:04 Pulse Rate 71 12/29/24 12:04 Respiratory Rate 18 12/29/24 12:04 Blood Pressure 140/76 12/29/24 12:04 Pulse Oximetry 100 12/29/24 12:04 Oxygen Delivery Method Room Air 12/29/24 12:04 GENERAL: Alert pleasant 29-year-old female and in no acute distress. HEENT: Head atraumatic,EOMI, pupils reactive, face symmetric, moist mucous membranes CARDIOVASCULAR: Regular rate and rhythm without murmurs, rubs or gallops. RESPIRATORY: Breath sounds equal bilaterally, no wheezes rales or rhonchi. ABDOMEN: Soft, nontender. Normoactive bowel sounds all 4 quadrants. No guarding or rebound. : No CVA tenderness EXTREMITIES: Normal range of motion, no clubbing or edema. Neurovascularly intact NEUROLOGICAL: Alert and oriented x4.Normal gait and speech. Cranial nerves II through XII grossly intact. SKIN: Warm, dry, no laceration, no petechiae, no rashes or lesions. Course Orders Ordered: ED Orders 12/29/24 12:13 US OB <= 14 weeks fetus Stat 12/29/24 12:21 Urine Culture Stat Urine Microscopic Stat 12/29/24 12:24 CBC Auto Diff [Complete Blood Count AUTO DIFF] Stat CMP [Comprehensive Metabolic Panel] Stat HCG Quantitative /Beta subunit Stat Vital Signs Vital signs: Vital Signs - 8 hr 12/29/24 12:04 12/29/24 14:32 Temperature 98.8 F Pulse Rate 71 65 Respiratory Rate 18 16 Blood Pressure 140/76 120/71 Pulse Oximetry 100 99 Oxygen Delivery Method Room Air Room Air MDM - OB/Uterine Contractions Lab Data 12/29/24 12:24 12/29/24 12:24 Labs: Lab Results 12/29/24 12/29/24 Range/Units 12:21 12:24 WBC 8.9 (4.5-11.0) X10^3/uL RBC 4.65 (4.0-5.2) X10^6/uL Hgb 14.0 (12.0-16.0) g/dL Hct 41.1 (36-46) % MCV 88.4 (80-100) fL MCH 30.2 (26-34) PG MCHC 34.1 (30-36) % RDW 13.6 (11.6-14.8) % Plt Count 292 (150-400) X10^3/uL Neut % (Auto) 72.6 (50-75) % Lymph % (Auto) 20.7 L (25-40) % [place] % (Auto) 5.2 (3-14) % Eos % (Auto) 1.1 L (2-4) % Baso % (Auto) 0.4 (0-2) % Neut # (Auto) 6500 (6894-3381) /uL Lymph # (Auto) 1800 (0272-1202) /uL [place] # (Auto) 500 (0-900) /uL Eos # (Auto) 100 (0-450) /uL Baso # (Auto) 0 (0-100) /uL Sodium 139 (137-145) mmol/L Potassium 3.6 (3.4-5.1) mmol/L Chloride 105 (98-107) mmol/L Carbon Dioxide 23 (22-32) mmol/L BUN 9 (7-17) mg/dL Creatinine 0.58 (0.52-1.04) mg/dL Estimated GFR > 60 (>60) mL/min BUN/Creatinine Ratio 15.5 (6-22) Glucose 117 H (70-99) mg/dL Calcium 9.3 (8.4-10.2) mg/dL Total Bilirubin 0.4 (0.2-1.3) mg/dL AST 27 (14-36) IU/L ALT 19 (<35) IU/L Alkaline Phosphatase 47 (38-126) U/L Total Protein 7.8 (6.3-8.2) g/dL Albumin 4.9 (3.5-5.0) g/dL Globulin 2.9 (1.7-4.1) g/dL Albumin/Globulin Ratio 1.7 (1.0-2.8) HCG, Quant 2836.7 mIU/mL Urine RBC >100/hpf H (0-5/HPF) Urine WBC 1-5/hpf (0-5/HPF) Ur Squamous Epith Cells 0-1 /hpf (0-5/HPF) Urine Bacteria Few (2-10) H (None) Ur Culture Indicated? Specimen cultured Vol Urine Centrifuged 10ml (spun) Blood Type Cancelled Point of Care Testing Test Results Positive Urine Dip Bedside Urine Glucose Negative Bedside Urine Bilirubin - Negative Bedside Urine Ketone - Negative Urine Specific [place] 1.010 Bedside Urine Occult Blood +++ Bedside Urine pH 6.5 Bedside Urine Protein + 30 Bedside Urine Urobilinogen - Negative Bedside Urine Nitrite - Negative Bedside Urine Leukocytes ++ 125 Esterase Imaging Data US - REQUIREMENTS MANAGER: Radiologist's Impression: PROCEDURE: US OB <= 14 WEEKS FETUS INDICATIONS: SPOTTING, CRAMPING Last menstrual period (LMP): 11/10/2024. LMP-based estimated date of delivery (JACQUELYN): 08/17/2024. TECHNIQUE: Real-time scanning was performed of the fetus and maternal pelvic organs, with image documentation. Endovaginal scanning was also performed to better visualize the fetus and maternal ovaries. COMPARISON: [facility], US, US OB <= 14 WEEKS FETUS, 06/16/2023, 6:57. FINDINGS: Embryo: [place]-rump length 0.6 cm corresponds with a 6 week 2 day gestation Heart rate: 98 beats per minute Maternal organs: Left-sided uterine fibroid, 2.5 x 2.2 cm. IMPRESSION: Single live intrauterine consistent with 6 week 2 day gestation Approved by: Kevin Ortiz M.D. on 12/29/2024 at 13:11 MDM Narrative Medical decision making narrative: Patient 29-year-old female presenting today with abdominal pain and cramping. Blood work has been reviewed HCG is 2836 Blood type A positive CBC no leukocytosis no anemia CMP electrolytes within normal limits glucose 117 Ultrasound confirms live IUP 6 weeks and 2 days. She does have a uterine fibroid 2.5 x 2.2 cm Discussion with patient about pelvic rest possible threatened miscarriage however continue supportive care and need close follow-up for repeat hCG. She has made arrangements an appointment with her Ob but she is not scheduled to see OB until January she is scheduled for an ultrasound on January 09. At this time he is given strict return precautions. Discharge Plan Departure Patient Disposition: Home Clinical Impression: Threatened miscarriage Instructions: Threatened Miscarriage Activity Restrictions/Additional Instructions: HCG 2836 *You have been diagnosed with threatened miscarriage *What to do: At this time pelvic rest please have blood work rechecked on Tuesday with your OB I have sent her an e-mail *Continue to take medications as directed Tylenol 1000 mg every 6 hours if needed for [id number] pain Continue vitamin *Follow up with your primary care provider in 2-3 days or call [phone] *Return to ER if you should have increasing abdominal pain vaginal bleeding more than 2 pads in 1 hour or any new, worsening or concerning symptoms Prescriptions: No Action vit-ferrous sulfat-FA 27 mg iron- 0.8 mg tablet PO Referrals: Rosa Winslow MD [Primary Care Provider, Family Practice] Stand Alone Forms: Patient Portal/API
[2024-12-29 14:32] VITALS: BP 120/71; PULSE 65; RESP 16; O2SAT 99
== END 2024-12-29 14:32 | disposition home or self-care (01) ==
PROVIDERS: Emergency Provider Emergency Medicine; PCP Family Medicine
DX: O20.0 Threatened abortion (principal); Z3A.01 Less than 8 weeks gestation of pregnancy
CPT/HCPCS: 36415; 76801; 76817; 80053; 81003; 81015; 81025; 84702; 85025; 87086; 99283; 99284

== ENCOUNTER → 2024-12-31 09:00 | Outpatient (CLI) | payer OTHER, SELFPAY ==
--- NOTE | 2024-12-31 09:01 | DI.US.S_ITS ---
PROCEDURE: US PELVIC COMPLETE INDICATIONS: assess for retained products of conception (RPOC) TECHNIQUE: Real-time scanning was performed of the pelvic organs, with image documentation. Additional endovaginal scanning was necessary due to incomplete visualization of the adnexal and endometrial structures by transabdominal scanning. COMPARISON: [facility], US, US OB <= 14 WEEKS FETUS, 12/29/2024, 12:47. FINDINGS: Uterus: Uterus is retroverted and normal in size at 8.9 x 4.9 x 5.9 cm. The myometrium is heterogeneous. A left posterior intramural fibroid measures 2.8 x 2.1 x 2.0 cm. The endometrium measures 10 mm combined thickness. Heterogeneous appearance of the endometrium without focal vascularity. Patient has history of septated cervix. Ovaries: The right ovary measures 4.0 x 2.8 x 3.8 cm, with a calculated ovarian volume of 22 cc. The left ovary measures 4.0 x 2.6 x 1.8 cm, with a calculated ovarian volume of 9.8 cc. The ovaries have a normal sonographic appearance. Less than 12 follicles can be seen in each ovary. No adnexal masses are seen. Other: No pathologic free abdominal or pelvic fluid. IMPRESSION: Heterogeneously hyperechoic appearance of the endometrium may be related to echogenic blood products. No focal vascularity is seen to suggest retained products of conception sonographically. Approved by: Darien Terrell M.D. on 12/31/2024 at 10:23
[2024-12-31 11:40] LABS: HCG Quantitative /Beta subunit 391.20 mIU/mL
== END ==
PROVIDERS: PCP Family Medicine; Referring Provider Family Medicine; Visit Provider Family Medicine
DX: O20.0 Threatened abortion (principal)
CPT/HCPCS: 36415; 76830; 76856; 84702

== ENCOUNTER → 2025-01-28 13:30 | Outpatient (CLI) | payer OTHER, SELFPAY ==
--- NOTE | 2025-01-28 13:30 | DI.NM.S_ITS ---
PROCEDURE: NM RENAL FUNCTION W LASIX RADIOPHARMACEUTICAL: 10 mCi Tc-99m MAG3 IV and 40 mg furosemide IV. INDICATIONS: recurrent right UPJ obstruction TECHNIQUE: The patient was hydrated orally before the examination was begun. After intravenous administration of Tc-99m MAG3, posterior abdominal radionuclide angiogram and sequential (1 minute each frame) renal images were obtained. A time-activity curve for each kidney was generated and analyzed. To evaluate for obstruction, the patient was given 40 mg furosemide via slow intravenous injection after the start of the examination. Sequential images were obtained for up to an additional 20 minutes. COMPARISON: Outside Facility, RG, [facility]WIN RENAL WITH LASIX, 02/10/2023, 13:22. FINDINGS: Perfusion: There is normal vascular flow to both kidneys. Morphology: Both kidneys are normal in size and shape. The ureters and bladder fill with tracer, and appear normal. Function: Both kidneys demonstrate delayed cortical uptake, 8.5 minutes on the left and 18 minutes on the right, with normal [id number] activity ranging from 3 to 5 minutes. The right kidney contributes 47.6 % of total renal function. The left kidney contributes 52.4 % of total renal function. Lasix stimulation: After diuretic administration, there is prompt clearance of tracer activity from the renal collecting systems in the left kidney with delayed excretion on the right. The half-time of emptying of tracer activity from the right pelvicaliceal system is 12 minutes. The half-time of emptying from the left pelvicaliceal system is 3.5 minutes. Normal emptying half-times are less than 10 minutes; borderline ranges are from 10 to 20 minutes. IMPRESSION: Delayed uptake and excretion of radiotracer within the right kidney. Delayed uptake in the left kidney with normal excretion. Dictated by: Matthew Zapata M.D. on 01/28/2025 at 16:04 Approved by: Matthew Zapata M.D. on 01/28/2025 at 16:17
== END ==
LOC: NUCM 13:30
PROVIDERS: PCP Family Medicine; Referring Provider Family Medicine; Visit Provider Family Medicine
DX: Q62.39 Other obstructive defects of renal pelvis and ureter (principal); N13.30 Unspecified hydronephrosis
CPT/HCPCS: 78708; A9562